=== PATIENT | female | born 1985 | race Caucasian/White ===

== ENCOUNTER 2021-01-03 01:31 | Inpatient (IN) | payer BC, SELFPAY ==
[2021-01-03] VITALS (116 sets, daily range): BP systolic 94–132; BP diastolic 54–96; PULSE 64–118; RESP 16–18; TEMP 36.3–36.9; O2SAT 89–100; BMI 29.5
--- OUTSIDE RECORDS SUMMARY | 2021-01-03 01:38 | XMS_ITS ---
:1985 Author Care Team Providers Name Role Phone Vlad Ordonez Primary Care Provider Unavailable Allergies Code Code System Name Reaction Severity Status Onset NKDA ? Medications Name Status Start Date Stop Date ? ? Adderall XR 30 mg capsule,extended release Completed ? 02/28/2018 Take 1 capsule every day by oral route. Amphetamine Salt Combo 20 mg tablet Unknown ? Not available Boostrix Tdap 2.5 Lf unit-8 mcg-5 Unknown ? Not available Lf/0.5 mL intramuscular syringe ceftriaxone 1 gram solution for injection Completed ? 10/08/2018 inject 1 mg ciprofloxacin 250 mg tablet Unknown ? Not available take 1 tablet by mouth twice a day cyanocobalamin (vit B-12) 1,000 mcg/mL injection solution Active ? Not available Inject 1 mL every month by subcutaneous route. dextroamphetamine-amphetamine 20 mg Completed ? 08/29/2016 tablet dextroamphetamine-amphetamine 30 mg tablet Active ? Not available TAKE 1 TABLET BY MOUTH EVERY DAY ergocalciferol (vitamin D2) 1,250 mcg Unknown ? Not available (50,000 unit) capsule fluconazole 150 mg tablet Completed ? 2019 TK 1 T PO TODAY THEN TK 1 T ON SUNDAY Fluvirin [id number] (PF) 45 mcg (15 mcg Unknown ? Not available x 3)/0.5 mL IM syringe hyoscyamine 0.125 mg disintegrating tablet Unknown ? Not available take 1 tablet by mouth every 6 hours if needed BEFORE MEALS AND A... (REFER TO PRESCRIPTION NOTES). Lamictal XR 100 mg ta
--- OUTSIDE RECORDS SUMMARY | 2021-01-03 01:38 | XMS_ITS ---
:1985 Author Care Team Providers Name Role Phone Vlad Pepe Primary Care Provider Unavailable Allergies Code Code System Name Reaction Severity Status Onset NKDA ? Medications Name Status Start Date Stop Date ? ? Adderall XR 30 mg capsule,extended release Completed 02/2802/28/2018 Take 1 capsule every day by oral route. Amphetamine Salt Combo 20 mg Completed ? 08/2016 tablet Boostrix Tdap 2.5 Lf unit-8 Unknown ? Not available mcg-5 Lf/0.5 mL intramuscular syringe ceftriaxone 1 gram solution for injection Completed ? 10/08/2018 inject 1 mg ciprofloxacin 250 mg tablet Unknown ? Not available take 1 tablet by mouth twice a day COVID-19 test specimen collection Completed ? 12/22/2020 DIRECTED cyanocobalamin (vit B-12) 1,000 mcg/mL injection solution Active ? Not available Inject 1 mL every month by subcutaneous route. dextroamphetamine-amphetamine Completed ? 20 mg tablet dextroamphetamine-amphetamine 30 mg tablet Active ? Not available TAKE 1 TABLET BY MOUTH EVERY DAY ergocalciferol (vitamin D2) Unknown ? Not available 1,250 mcg (50,000 unit) capsule fluconazole 150 mg tablet Completed ? 2019 TK 1 T PO TODAY THEN TK 1 T ON SUNDAY Fluvirin 8710-5057 (PF) 45 mcg Unknown ? N ot available (15 mcg x 3)/0.5 mL IM syringe
--- OUTSIDE RECORDS SUMMARY | 2021-01-03 01:38 | XMS_ITS | Encounter Summary ---
:1985 Author Reason for Visit F/U Meds Assessment and Plan 1. Renewal of prescription ? lamotrigine 100 mg tablet ? dextroamphetamine-amphetam ine 30 mg tablet 2. Attention deficit hyperactivi ty disorder, predominantly inattentive type 3. Gestation period, 38 weeks Discussion Note: None recorded.Patient educational handouts: No information available. Plan of Care Reminders Provider Appointments None ? ? recorded. Lab None ? ? recorded. Referral None ? ? recorded. Procedures None ? ? recorded. Surgeries None ? ? recorded. Imaging None ? ? recorded. Medications Name Start Date ? ? cyanocobalamin (vit B-12) 1,000 mcg/mL injection solut ion ? Inject 1 mL every month by subcutaneous route. dextroamphetamine-amphetamine 30 mg tablet ? TAKE 1 TABLET BY MOUTH EVERY DAY lamotrigine 100 mg tablet ? TAKE 1 TABLET BY MOUTH THREE TIMES DAILY lorazepam 1 mg tablet ? TK 1 T PO TID Medications Administered None recorded. Vitals Height Weight BMI Blood Pressure 5 ft 7 in 194 lbs 16 oz 30.5 kg/m2 120/70 mm[Hg] Results Lab Results None recorded. Allergies Code Code System Name [place]
[2021-01-03 02:17] LABS: Basophils Percent Auto 0.4 % (0.2-1.2); Hemoglobin 11.8 g/dL (12.0-15.0); Immature Granulocyte Absolute 0.05 K/mm3 (0.00-0.031); Immature Granulocyte Percent A 0.5 % (0-0.5); Lymphocytes Absolute Auto 1.82 K/mm3 (0.9-3.2); Lymphocytes Percent Auto 19.5 % (18.3-44.2); Mean Corpuscular HGB Conc 32.8 g/dl (32-36); Mean Corpuscular Hemoglobin 28.9 pg (26-34); Mean Platelet Volume 11.3 fl (7.4-10.4); Monocytes Absolute Auto 0.5 K/mm3 (0.1-0.6); Monocytes Percent Auto 5.4 % (2.6-8.5); Neutrophils Absolute Auto 6.9 K/mm3 (1.3-6.7); Neutrophils Percent Auto 74.2 % (45.5-73.1); Platelet Count Result 169 k/mm3 (150-375); Red Blood Count 4.09 M/mm3 (4.2-5.4); Red Cell Distribution Width 14.5 % (11.5-14.5); White Blood Count 9.3 K/mm3 (4.5-10.0)
--- NOTE | 2021-01-03 02:26 | LDADM ---
This patient, Odessa Rossi, was admitted to Labor/Delivery/Recovery 104 on 01/03/21 at 01:31. Plans for labor, pain management and were discussed with patient. Patient/family oriented to hospital policies and general routines including ID bracelet, bed and alarms, visiting hours, pain management, procedures, bathroom and other care routines, personal items, smoking policy, room service/diet and guest tray routines, infant security routines, and visiting hours. Patient/Family are encouraged to report perceived risks to care and to ask questions if they do not understand what they are told or what they should do. See OBIX for further documentation.
[2021-01-03] MEDS: LACTATED RINGERS 1,000 ML 125 ML IV CONT ×2 (02:30→03:18)
[2021-01-03] MEDS: AMPICILLIN 2 GM/NS 100 ML 2 GM/100 ML BAG IVPB (02:31)
[2021-01-03 03:14] LABS: HIV 1/2 Ab P24 Ag Result Negative (Negative)
--- NOTE | 2021-01-03 03:32 | WPDANESEPPF ---
Anes - Initial Pre Proc Eval Procedure: labor epidural Date/Time: 01/03/21 03:32 Surgeon: Cruzito Mchugh MD Pre Op Diagnosis: labor pain Pre Op Diagnosis: IOL Patient Data Age: 35 Gender: F Height: 1.73 m Weight: 88 kg Allergies Allergy/AdvReac Type Severity Reaction Status Date / Time No Known Allergies Allergy Verified 12/21/20 15:37 Home Medications Medication Instructions Recorded Confirmed Type lamotrigine [Lamictal] 300 mg PO DAILY 12/21/20 12/21/20 History prenat.vits,franc,[id number] 1 tablet PO DAILY 12/21/20 12/21/20 History [ #2] Laboratory Tests 01/03/21 01/03/21 01/03/21 02:02 02:02 02:02 WBC 9.3 K/mm3 K/mm3 (4.5-10.0) RBC 4.09 M/mm3 L M/mm3 (4.2-5.4) Hgb 11.8 g/dL L g/dL (12.0-15.0) Hct 36.0 % L % (37.0-47.0) MCV 88.0 fl fl (80-100) MCH 28.9 pg pg (26-34) MCHC 32.8 g/dl g/dl (32-36) RDW 14.5 % % (11.5-14.5) Plt Count 169 k/mm3 k/mm3 (150-375) MPV 11.3 fl H fl (7.4-10.4) Immature Gran % (Auto) 0.5 % % (0-0.5) Neut % (Auto) 74.2 % H % (45.5-73.1) Lymph % (Auto) 19.5 % % (18.3-44.2) [place] % (Auto) 5.4 % % (2.6-8.5) Eos % (Auto) 0.0 % % (0-4.4) Baso % (Auto) 0.4 % % (0.2-1.2) Lymph # (Auto) 1.82 K/mm3 K/mm3 (0.9-3.2) [place] # (Auto) 0.5 K/mm3 K/mm3 (0.1-0.6) Eos # (Auto) 0.0 K/mm3 K/mm3 (0-0.3) Baso # (Auto) 0.0 K/mm3 K/mm3 (0.0-0.1) Abs Immat Gran (auto) 0.05 K/mm3 H K/mm3 (0.00-0.031) Absolute Neuts (auto) 6.9 K/mm3 H K/mm3 (1.3-6.7) Absolute Nucleated RBC 0.0 K/mm3 K/mm3 (0.0-0.012) Nucleated RBC % 0.0 % % (0.0-0.2) RPR Pending HIV 1&2 Ab/P24 Ag 4thGn Negative (Negative) Blood Type Antibody Screen 01/03/21 02:02 WBC RBC Hgb Hct MCV MCH MCHC RDW Plt Count MPV Immature Gran % (Auto) Neut % (Auto) Lymph % (Auto) [place] % (Auto) Eos % (Auto) Baso % (Auto) Lymph # (Auto) [place] # (Auto) Eos # (Auto) Baso # (Auto) Abs Immat Gran (auto) Absolute Neuts (auto) Absolute Nucleated RBC Nucleated RBC % RPR HIV 1&2 Ab/P24 Ag 4thGn Blood Type O Positive Antibody Screen Negative Patient hx anesthesia problems: none Family hx anesthesia problems: none Results Review: All pre-operative results and documents have been reviewed as part of the pre-operative evaluation. COUNTS INCLUDE 234 BEDS AT THE [facility] Past Medical History Medical History (Updated 01/03/21 @ 03:33 by Ky Reyes DO) Epilepsy Family History Family History Mother Epilepsy Social History Social History Smoking status: Never smoker Second hand tobacco smoke exposure: No Substance use: never Spiritual care concerns: No Anes - Eval Final PreProcedure Day of Procedure 01/03/21 03:32 Patient weight: overweight ASA classification: III Anesthesia type and monitoring: regional epidural and standard monitoring Results Review: All pre-operative results and documents have been reviewed as part of the pre-operative evaluation. Informed Consent: The patient's anesthetic plan and its attendant risks and benefits were discussed with the patient/family/POA. Questions were solicited and answers provided to the satisfaction of the patient/family/POA.
--- NOTE | 2021-01-03 06:07 | PM.IMHP ---
H&P: HPI History of Present Illness Date/Time: 01/03/21 06:07 35-year-old 5 para 2021 whose last menstrual period 04/04/2020, EDC is 01/08/2021, presents at39+ weeks gestation in active labor. She is positive for group B strep and is being treated as such. Epidural is in and working. The has otherwise been uncomplicated. She has advanced maternal age and genetic testing proved normal male chromosomes Chief Complaint: labor at term with group B strep Review of Systems Review of Systems: All systems reviewed & are unremarkable except as noted in HPI and below PMFSH Past Medical History Medical History Epilepsy Family History Family History Mother Epilepsy Social History Social History Smoking status: Never smoker Second hand tobacco smoke exposure: No Substance use: never Spiritual care concerns: No Meds Home Medications and Allergies Home Medications Medication Instructions Recorded Confirmed Type lamotrigine [Lamictal] 300 mg PO DAILY 12/21/20 12/21/20 History prenat.vits,franc,qyc-[id number]-[id number] 1 tablet PO DAILY 12/21/20 12/21/20 History [ #2] Allergies Allergy/AdvReac Type Severity Reaction Status Date / Time No Known Allergies Allergy Verified 12/21/20 15:37 Exam Const: General: no acute distress Eyes: General: appearance normal, both eyes and all related structures Neck: Neck: supple and no JVD Thyroid: thyroid normal Resp: Effort & Inspection: normal respiratory effort Auscultation: clear to auscultation bilaterally Cardio: Rate: regular rate Rhythm: regular rhythm GI: Inspection: non-distended GI Palp: Yes Soft to palpation, No Tenderness to palpation present (GI) and No Guarding due to palpation present (GI) Auscultation: normal bowel sounds : External Female Exam: normal external appearance Speculum Exam - Vagina: normal appearance of the vagina Speculum Exam - Cervix: Cervical os closed ( cervix 8/100%/ 0. AROM clear. Her FHTs reassuring) Skin: General skin exam: no rashes or lesions noted Extrem: General: normal to inspection and no edema Psych: Mental Status: mental status grossly normal Affect: normal affect H&P: Results Labs Labs: Short CBC 01/03/21 Range/Units 02:02 WBC 9.3 (4.5-10.0) K/mm3 Hgb 11.8 L (12.0-15.0) g/dL Hct 36.0 L (37.0-47.0) % Plt Count 169 (150-375) k/mm3 Assessment and Plan Additional Plan impression: Term in active labor with group B strep Plan: Group B strep prophylaxis is undertaken. The spontaneous vaginal delivery is expected. Epidural is in and working
[2021-01-03] MEDS: AMPICILLIN 1 GM/NS 50 ML 1 GM/50 ML BAG IVPB (06:32)
[2021-01-03 06:58] LABS: Rapid Plasma Reagin Non-Reactive (NonReactive)
[2021-01-03] MEDS: OXYTOCIN 30 UNITS/NS 500 ML 30 UNITS/500 ML BAG 999 UNITS IV CONT (08:17)
--- NOTE | 2021-01-03 08:24 | PM.OBPRVD ---
OB - Delivery Note Procedure Delivery date: 01/03/21 Intrapartal events: None Induction method: none Delivery monitor: external FHT Route of delivery: Episiotomy description: None Laceration Description: None Specimen: No Quantitative Blood Loss (ml): 158 Anesthesia type: Epidural Disposition: floor Narrative: amp x 2 for gbs Baby Date of : 01/03/21 Time of : 08:15 Weeks of gestation at delivery: 39 Infant gender: Male Weight (pounds): 8 Weight (ounces): 6 presentation: vertex position: Right Occiput Anterior Placenta delivery description: Spontaneous cord vessel description: 3 Vessels, Nuchal Cord, Tight and Clamped/Cut score one minute: 9 score five minutes: 9
[2021-01-03] MEDS: OXYTOCIN 30 UNITS/NS 500 ML 30 UNITS/500 ML BAG 125 UNITS IV CONT (08:58)
[2021-01-03] MEDS: BENZOCAINE 20% AER SPR (*SP) 56 GM CAN 1 SPRAY TOPICAL (10:50)
[2021-01-03] MEDS: WITCH HAZEL 40 PADS 1 PAD TOPICAL (10:50)
--- NOTE | 2021-01-03 15:20 | PC.NURSE ---
Mother called out for assist with feeding. This is mother's 3rd child first to breastfeed. is able to freely thrust tongue past gum ridge and flange both lips. Skin is intact on both nipples, no redness and bruising noted. Reviewed feeding cues, frequencies, duration of feedings, feeding elimination flow sheet, and signs of adequate intake. Demonstrated stimulation techniques to wake infant for feeding. Mother is attempting to right breast in cradle, suggested to darlene cross cradle. Assisted with infant to breast. Reviewed positioning/alignment in cross cradle, holding breast in ?U? hold and guided asymmetrical latch on. Reviewed rational for each. Right nipple has a small profile compared to left. Demonstrated rolling nipple and assisted with the Latch assist to draw out nipple. Infant able to latch correctly within a several attempts. Infant nursed eagerly with steady draws and occasional swallowing noted, some pausing noted. Reviewed signs of a correct latch, effective nursing and suck swallow ratio. Suggested mother stimulate while feeding to increase stimulate, increase intake and to assist with maintaining deep latch. would slip to shallow latch causing tenderness. Demonstrated how to adjust latch more deeply while feeding if needed. Mother reports she can feel the difference in latch with no/less tenderness. Nipple care reviewed of lanolin after feedings, warm compresses as needed. Instructed mother to call out for RN assistance if she is unable to latch for feeding or she has discomfort with nursing. Instructed feeding should be initiated three hours from start of last feeding or if feeding cues are noted before. Mother voiced understanding of information shared.
[2021-01-03] MEDS: IBUPROFEN 600 MG TABLET PO ×2 (16:22→22:23)
--- NOTE | 2021-01-03 19:08 | PC.NURSE ---
1110 Pt admitted to room 282 per wheelchair from labor and delivery after spontaneous vaginal delivery of viable male infant at [address] Patricia Sifuentes. Mother is a and is choosing to breast feed infant. /FOB present. Pt's VSS and assessment WNL. Couple oriented to room, staffing and procedures. Pt R leg heavy with continued epidural effect; Vibha Steady used for transfer from wheelchair to bed; pt knows to call for assistance to bathroom; she agreed.
[2021-01-03] MEDS: ACETAMINOPHEN 325 MG TABLET 650 MG PO (19:46)
[2021-01-04 05:00] VITALS: BP 100/57; PULSE 65; RESP 18; TEMP 36.6
[2021-01-04] MEDS: IBUPROFEN 600 MG TABLET PO ×2 (05:19→10:22)
[2021-01-04 05:58] LABS: Hematocrit 31.4 % (37.0-47.0)
--- NOTE | 2021-01-04 06:17 | PM.OBPNVD ---
OB - PN: Subj Subjective Date/time seen: 01/04/21 06:17 Patient comments: no complaints and pain well controlled baby status: doing well and nursing well OB - PN: Obj Data Labs CBC & Chem 7: 01/04/21 05:18 Labs: Laboratory Results - last 24 hr 01/03/21 01/04/21 02:02 05:18 Hgb 10.0 L Hct 31.4 L RPR Non-reactive OB - PN A/P Plan day: 1 Plan: routine care Time Spent With Patient Time: Total time spent is greater than 50% in coordination of care (as documented) at patient's floor/unit and/or counseling patient: Time with patient: less than 15 minutes Review of Systems Review of Systems: All systems reviewed & are unremarkable except as noted in HPI and below Exam Const: General: no acute distress Eyes: General: appearance normal, both eyes and all related structures Neck: Neck: supple and no JVD Thyroid: thyroid normal Resp: Effort & Inspection: normal respiratory effort Auscultation: clear to auscultation bilaterally Cardio: Rate: regular rate Rhythm: regular rhythm GI: Inspection: non-distended GI Palp: Yes Soft to palpation, No Tenderness to palpation present (GI) and No Guarding due to palpation present (GI) Auscultation: normal bowel sounds : General: Yes bladder normal to palpation External Female Exam: normal external appearance Speculum Exam - Vagina: normal vaginal discharge and No vaginal bleeding Speculum Exam - Cervix: nontender Bimanual exam- vagina & uterus: bladder normal to palpation and No Cervical tenderness present OB/external & speculum: No vaginal bleeding Skin: General skin exam: no rashes or lesions noted Extrem: General: normal to inspection and no edema Psych: Mental Status: mental status grossly normal Affect: normal affect
[2021-01-04 08:00] VITALS: BP 98/60; PULSE 65; PULSE 68; RESP 18; TEMP 36.8
--- NOTE | 2021-01-04 08:30 | PC.NURSE ---
Patient was given the opportunity to view the discharge video Mother & Baby Care, The First Two Weeks and to ask questions. Patient declined viewing the video and has been given the mother/baby guide for home reference.
--- NOTE | 2021-01-04 09:55 | PC.NURSE ---
Mother called out for assist with feeding due to pain on right with latching, no issues with left. Mother states she has been given a nipple shield to assist with latching to right breast. Suggested mother sit up in side chair this feeding to assist with her comfort and latch. Infant is able to freely thrust tongue past gum ridge and flange both lips. Skin on right nipple is reddened and small area of scabbing noted. Reviewed feeding cues, frequencies, duration of feedings, feeding elimination flow sheet, and signs of adequate intake. Demonstrated stimulation techniques to wake infant for feeding. Assisted with infant to breast. Reviewed positioning/alignment in football, holding breast in ?C? hold and guided asymmetrical latch on. Reviewed rational for each. Infant able to latch correctly within a few attempts. Infant nursed eagerly with steady draws and occasional swallowing noted, some pausing noted. Reviewed signs of a correct latch, effective nursing and suck swallow ratio. Suggested mother stimulate while feeding to increase stimulate, increase intake and to assist with maintaining deep latch. would slip to shallow latch causing tenderness. Demonstrated how to adjust latch more deeply while feeding if needed. Mother reports she can feel the difference in latch with no/less tenderness. Nipple care reviewed of lanolin after feedings, warm compresses as needed. Instructed mother to call out for RN assistance if she is unable to latch infant for feeding or she has discomfort with nursing. Instructed feeding should be initiated three hours from start of last feeding or if feeding cues are noted before. Mother voiced understanding of information shared.
[2021-01-04] MEDS: BENZOCAINE 20% AER SPR (*SP) 56 GM CAN 1 SPRAY TOPICAL (10:22)
[2021-01-04] MEDS: WITCH HAZEL 40 PADS 1 PAD TOPICAL (10:22)
[2021-01-04] MEDS: DOCUSATE SODIUM 100 MG CAPSULE PO (10:23)
[2021-01-04] MEDS: MULTIVIT/MIN/PREN/FOL AC/IRON TABLET 1 TAB PO (10:23)
--- NOTE | 2021-01-04 11:29 | PC.NURSE ---
Self care and infant care discharge instructions given including follow up visit date and time. Pt. verbalized understanding. No questions or concerns voiced. Very pleasant and cooperative. FOB at side.
--- NOTE | 2021-01-04 14:00 | PC.NURSE ---
Consult with pt., observed mother is able to independently latch infant with appropriate positioning/alignment. Infant eagerly latches with long rhythmical draws and frequent swallowing noted. Mother continues to work with latch on right breast She reports slight nipple discomfort on right none on left, is feeding as required and waking to feed if needed. has had at least 8 effective feedings in the past 24 hours, and is currently meeting outcomes for weight, output, jaundice and feeding frequencies. Mother states she feels confident to continue effective at home. Reviewed transition to breast milk, signs of adequate intake, and engorgement/relief. Instructed to call ICP if intake/output less than required. Reviewed regular medications mother is taking. Information provided per Alma Rosa. Reviewed community resources on the [email or web address] website and in the Mom/Baby guide. Information on outpatient services provided. Mother has no further questions at this time. Instructed feeding should be initiated three hours from start of last feeding or if feeding cues are noted before until seen by ICP. Mother voiced understanding of information shared.
--- NOTE | 2021-01-04 15:13 | WPDANLDPN2 ---
Anes-Prog Note L&D Date/Time: 01/04/21 15:13 Comfortable throughout: labor and delivery Neuraxial method: epidural Epidural/Spinal procedure site: clean & non-tender Neuro status: Neuro function grossly intact. Cardiovascular status: normal Respiratory status: normal Airway patency: baseline Mental status: baseline Post-Op hydration status: normal Vital Signs: Last Vital Signs Temp 98.3 F 01/04/21 08:00 Pulse 68 01/04/21 08:00 Resp 18 01/04/21 08:00 BP 98/60 L 01/04/21 08:00 Pulse Ox 100 01/03/21 17:15 Pain score (VAS): 0 Post-procedural complaints: none Patient feedback: Patient satisfied with anesthetic care.
[2021-01-05 11:41] VITALS: BP 120/70; PULSE 69; RESP 20; TEMP 37; O2SAT 100
--- NOTE | 2021-01-07 10:07 | PM.DS ---
DS: Admitting Diagnosis Discharge Date 01/04/21 Admitting Diagnosis term favorable cervix DS: Summary Hospital Course Hospital Course: patient was admitted for induction of labor. She underwent spontaneous vaginal delivery and had an unremarkable course. Time Spent with Patient Time attestation: Total time spent providing and/or coordinating discharge services: Exam Const: General: no acute distress Eyes: General: appearance normal, both eyes and all related structures Neck: Neck: supple and no JVD Thyroid: thyroid normal Resp: Effort & Inspection: normal respiratory effort Auscultation: clear to auscultation bilaterally Cardio: Rate: regular rate Rhythm: regular rhythm GI: Inspection: non-distended GI Palp: Yes Soft to palpation, No Tenderness to palpation present (GI) and No Guarding due to palpation present (GI) Auscultation: normal bowel sounds : General: Yes bladder normal to palpation External Female Exam: normal external appearance Speculum Exam - Vagina: normal vaginal discharge and No vaginal bleeding Speculum Exam - Cervix: nontender Bimanual exam- vagina & uterus: bladder normal to palpation and No Cervical tenderness present OB/external & speculum: No vaginal bleeding Skin: General skin exam: no rashes or lesions noted Extrem: General: normal to inspection and no edema Psych: Mental Status: mental status grossly normal Affect: normal affect Discharge Plan Discharge Attending physician on discharge: Cruzito Mchugh Consulting providers: Ky Reyes Discharging Clinician: Cruzito Mchugh Anticipated Discharge Date/Time: 01/04/21 11:30 Patient Disposition: Home, Self-Care Activity: may shower and pelvic rest Diet: breast feed on demand Discharge Instructions: Education: Mom and Baby Guide Given to: Mother Follow-Up: Call your delivering provider's office for an appointment to be seen in: 6 Weeks Mom and baby should come to the [facility] for the follow-up appointment. Appointment Date/Time: Tuesday, January 05, 2021 at 11:00 am What to expect at your follow-up visit: Blood Pressure Check Physical Assessment Call [phone] if you are unable to keep your appointment time. BREAST CARE: * Wear a snug supportive bra. * For engorgement discomfort: Breast Feeding: * Apply warm moist washcloths * Express milk as needed to relieve engorgement * Wear loose clothing Bottle Feeding: * May apply ice packs * For sore nipples: * Identify correct latch-on * Apply warm moist washcloths before and after nursing * Air dry nipples after nursing * May apply Lansinoh cream to nipples EPISIOTOMY/PERINEAL CARE: * Until bleeding stops, use your june bottle after urinating * Change your pad frequently throughout the day ACTIVITY: * Rest as much as possible. * Do not exercise or lift anything heavier than your baby (such as laundry or other children.) * Avoid stairs or driving as much as possible. * Do not put anything into the vagina. No douching, tampons, or sexual activity until seen by physician. NOTIFY PHYSICIAN IF YOU HAVE ANY QUESTIONS OR IF ANY OF THE FOLLOWING SYMPTOMS OCCUR: * If your vaginal bleeding becomes foul smelling. * If your vaginal bleeding becomes more heavy than a period or if your bleeding changes from pink to bright red. However, you may pass an occasional walnut-sized clot once or twice for the first week . * If you experience a sharp, shooting pain in you calves. * If you discover a hard, reddened area on your breast or if you experience flu-like symptoms. DIET: * Eat regular, well-balanced meals. * Drink plenty of fluids daily. If , drink to thirst. Patient Instructions: Antibiotic Form Stand Alone Forms: General Discharge Information Follow-up/Referrals
== END 2021-01-04 15:26 | disposition home or self-care (01) | DRG 807 ==
LOC: ANHLDR 01:36 → ANHOB2 11:12
PROVIDERS: Admitting Provider Obstetrics & Gynecology; PCP Family Medicine; Visit Provider Obstetrics & Gynecology
DX: O99.824 Streptococcus B carrier state complicating childbirth (principal); Z37.0 Single live birth; O69.1XX0 Labor and delivery complicated by cord around neck, with compression, not applicable or unspecified; Z3A.39 39 weeks gestation of pregnancy
CPT/HCPCS: 36415; 85014; 85018; 85025; 86592; 86703; 86850; 86900; 86901; A9270; G0432; J0290; J2590; J2795; J7120

== ENCOUNTER 2023-06-08 17:09 | Emergency (ER) | payer BC, SELFPAY ==
--- NOTE | ~2023-06-08 | CT_ITS ---
EXAMINATION: CT BRAIN W/O DATE: 06/08/2023 17:55 INDICATION: Paresthesias. TECHNIQUE: Computed tomography (CT) of the head was performed without intravenous contrast. The dose- length product was 605.33 mGy-cm. Automated exposure control and iterative reconstruction technique w ere employed. COMPARISON: No prior studies for comparison. FINDINGS: Normal brain parenchymal volume for age. Normal monsivais-white differentiation. No acute intrac ranial hemorrhage, infarction, mass or mass effect. No ventriculomegaly or midline shift. Midline sagittal images demonstrate a normal corpus callosum, c raniovertebral junction and sella turcica. Basilar cisterns are patent. Paranasal sinuses and mastoids are pneumatized. No depressed skull fractures. IMPRESSION: 1. No acute intracranial abnormality. Reviewed, dictated and finalized at location A.
--- NOTE | ~2023-06-08 | US_ITS ---
EXAMINATION:US venous doppler LE RT INDICATION:Right leg pain. Ecchymosis. TECHNIQUE: Multiple grayscale, color flow and Doppler images of the right lower extremity deep venous systems were obtained and reviewed. COMPARISON:No prior studies for comparison. FINDINGS: The common femoral, superficial femoral and popliteal veins demonstrate normal respiratory variation, augmentation and compressibility. Color flow is also seen within the posterior tibial, pe roneal, greater saphenous and profunda veins. IMPRESSION: 1: No lower extremity deep venous thrombosis. Reviewed, dictated and finalized at location A.
--- NOTE | ~2023-06-08 | XR_ITS ---
EXAMINATION: XR chest 2V 06/08/2023 17:56 INDICATION: Chest pain. PROCEDURE: 2 view chest COMPARISON: No prior studies for comparison. FINDINGS: The lungs are clear. The cardiomediastinal silhouette is within normal limits. There are no pleural effusions. There is no pneumothorax suspected. IMPRESSION: 1: NO ACUTE CARDIOPULMONARY DISEASE. Reviewed, dictated and finalized at location A.
[2023-06-08 17:14] VITALS: BP 114/68; PULSE 92; RESP 18; TEMP 36.3; O2SAT 100
--- NOTE | 2023-06-08 17:25 | ED.EXTPRO ---
HPI - Extremity Problem General Chief complaint: Extremity Problem,Nontraumatic Stated complaint: right sided arm/leg numbness since 1430 Time Seen by Provider: 06/08/23 17:25 Source: patient Mode of arrival: ambulatory Limitations: no limitations History of Present Illness HPI Narrative: Patient is a 38 y/o female, with PMH of epilepsy, who presents to the ED with multiple complaints. Patient reports she 1st developed a brief episode of midsternal chest pain around 2:00 p.m. today. States she walked around her house and the pain quickly resolved. She then began having a tingling sensation in her RUE. She then states the tingling began to radiate into her right thigh and leg. She then noticed a bruise behind her R knee. Denies any known injury. She then decided to come here. Patient states she would just like to be checked out and make sure she is not having a heart attack or have a blood clot. Denies current CP. Denies significant swelling in lower extremities. Denies pain in lower extremities. Denies any previous history of blood clots. Denies recent surgery or long distance travel. She is not on any hormonal supplements. Denies previous cardiac issues. Denies history of hypertension, hyperlipidemia, diabetes. States tingling is still present very slightly. Denies weakness of RUE/RLE. Denies numbness. Denies any slurred speech, confusion, significant dizziness/lightheadedness, vision changes. Denies SOB, cough or cold sx's. Related Data Home Medications Medication Instructions Recorded Confirmed lamotrigine 100 mg tablet 300 mg PO DAILY 12/21/20 12/21/20 (Lamictal) prenat.vits,franc,ocl-sqmx-zquvp 1 tablet PO DAILY 12/21/20 12/21/20 Allergies Allergy/AdvReac Type Severity Reaction Status Date / Time No Known Allergies Allergy Verified 12/21/20 15:37 Review of Systems Review of Systems: CONSTITUTIONAL: Denies fever, chills, or sweats. CARDIOVASCULAR: See HPI RESPIRATORY: Denies cough or dyspnea. GASTROINTESTINAL: Denies abdominal pain, nausea, vomiting. MUSCULOSKELETAL: See HPI NEUROLOGIC: See HPI. All systems reviewed & are unremarkable except as noted in HPI and below PMFSH Past Medical History Medical History Epilepsy Family History Family History Mother Epilepsy Social History Social History Smoking status: Never smoker Second hand tobacco smoke exposure: No Substance use: never Spiritual care concerns: No Exam Narrative: GENERAL: Well appearing, well-nourished, non-toxic, in no acute distress. HEAD: Normocephalic, atraumatic. EYES: PERRL/EOMI, conjunctivae clear bilaterally. No nystagmus. NECK: Supple. No meningeal signs. RESPIRATORY: Airway patent, respirations nonlabored. Clear to auscultation bilaterally, no rales, rhonchi, wheezing. CARDIOVASCULAR: Regular rate and rhythm without murmurs, rubs, or gallops. Peripheral pulses easily palpable bilaterally. MUSCULOSKELETAL: Moves all extremities. No gross deformities. Ecchymosis to R popliteal region. No significant tenderness over ecchymosis. No calf tenderness. No lower extremity edema. SKIN: Warm, dry, normal color. No rashes. NEURO: A&O X3. Speech clear. No aphasia or slurred speech. Follows commands. CN II-XII intact. Sensation intact throughout RUE/RLE, no sensory deficits. Steady gait. No ataxic movements. Strength 5/5 in upper and lower extremities bilaterally. Zjbt-vy-lhqa and pkchqw-pr-zwiw testing intact bilaterally. No pronator drift. Equal faculty support coordinator strength bilaterally. PSYCHIATRIC: Mildly anxious. Normal interaction. Course Vital Signs Vital signs: Vital Signs Temperature 97.4 F L 06/08/23 17:14 Pulse Rate 92 06/08/23 17:14 Respiratory Rate 18 06/08/23 17:14 Blood Pressure 114/68 06/08/23 17:14 Pulse Oximetry 100 06/08/23 17:
--- NOTE | 2023-06-08 17:36 | ECG_ITS ---
Measurements Intervals [place] Rate: 76 P: -31 KS: 154 QRS: 23 QRSD: 102 T: 16 QT: 394 QTc: 445 Interpretive Statements SINUS RHYTHM INCOMPLETE RIGHT BUNDLE BRANCH BLOCK BORDERLINE ECG NO PREVIOUS ECG AVAILABLE FOR COMPARISON Electronically Signed On 06-08-2023 20:29:10 CDT by Adi Benson D.O.
--- NOTE | 2023-06-08 17:46 | PC.NURSE ---
Pt taken for CT at this time
--- NOTE | 2023-06-08 18:21 | PC.NURSE ---
Pt returned to room 11 at this time
[2023-06-08 18:40] LABS: Basophils Absolute Auto 0.1 K/mm3 (0.0-0.1); Eosinophils Percent Auto 0.2 % (0-4.4); Hematocrit 38.2 % (37.0-47.0); Hemoglobin 12.3 g/dL (12.0-15.0); Immature Granulocyte Absolute 0.02 K/mm3 (0.00-0.031); Immature Granulocyte Percent A 0.3 % (0-0.5); Lymphocytes Absolute Auto 1.27 K/mm3 (0.9-3.2); Lymphocytes Percent Auto 20.6 % (18.3-44.2); Mean Corpuscular HGB Conc 32.2 g/dl (32-36); Mean Corpuscular Hemoglobin 28.1 pg (26-34); Mean Corpuscular Volume 87.2 fl (80-100); Mean Platelet Volume 10.2 fl (7.4-10.4); Monocytes Absolute Auto 0.3 K/mm3 (0.1-0.6); Neutrophils Absolute Auto 4.5 K/mm3 (1.3-6.7); Neutrophils Percent Auto 72.9 % (45.5-73.1); Platelet Count Result 264 k/mm3 (150-375); Red Blood Count 4.38 M/mm3 (4.2-5.4); Red Cell Distribution Width 12.2 % (11.5-14.5); White Blood Count 6.2 K/mm3 (4.5-10.0)
[2023-06-08 18:53] LABS: Alanine Aminotransferase 10 U/L (6-35); Albumin Level 4.4 g/dL (3.5-5.1); Alkaline Phosphatase 68 U/L (38-126); Anion Gap 5 mmol/L (8-16); Aspartate Amino Transferase 20 U/L (14-36); Bilirubin,Total 1.5 mg/dL (0.2-1.3); Blood Urea Nitrogen 9 mg/dL (7-17); Calcium 9.5 mg/dL (8.4-10.2); Carbon Dioxide 27 mmol/L (22-30); Chloride 104 mmol/L (98-107); Estimated CRCL calculation 91 ml/min; Estimated Glomerular Filt Rate > 60; Glucose 110 mg/dL (65-110); Magnesium 2.2 mg/dL (1.6-2.3); Potassium 3.6 mmol/L (3.4-5.0); Sodium 136 mmol/L (137-145)
[2023-06-08 18:54] LABS: Prothrombin Time 13.2 Seconds (11.1-14.7)
[2023-06-08 18:55] LABS: Partial Thromboplastin Time 29.2 Seconds (22.3-36.8)
[2023-06-08 19:04] LABS: Troponin I < 0.012 ng/mL (0.000-0.034)
[2023-06-08 19:42] VITALS: BP 117/75; PULSE 85; RESP 18; O2SAT 100
[2023-06-08 20:43] VITALS: BP 120/88; PULSE 87; RESP 18; O2SAT 100
[2023-06-08 21:01] LABS: Troponin I < 0.012 ng/mL (0.000-0.034)
[2023-06-08 21:41] VITALS: BP 110/95; PULSE 83; RESP 14; O2SAT 100
== END 2023-06-08 21:46 | disposition home or self-care (01) ==
PROVIDERS: Emergency Provider Physician Assistant; PCP Family Medicine
DX: R20.2 Paresthesia of skin (principal); R07.89 Other chest pain; G40.909 Epilepsy, unspecified, not intractable, without status epilepticus; I45.10 Unspecified right bundle-branch block
CPT/HCPCS: 36415; 70450; 71046; 80053; 83735; 84484; 85025; 85610; 85730; 93005; 93971; 99284

== ENCOUNTER 2024-08-17 17:07 | Emergency (ER) | payer BC, SELFPAY ==
--- NOTE | ~2024-08-17 | XR_ITS ---
XR ankle LT min 3V Ordering provider: Bethanie Melara MD History: . INJURY FALL INJ FROM LADDER PAIN . Comparison: None. FINDINGS: BONES: No acute fracture or dislocation. JOINT SPACES: The ankle mortise is normal. SOFT TISSUES: Normal. IMPRESSION: No acute osseous abnormality left ankle. Reviewed, dictated and finalized at location A.
--- OUTSIDE RECORDS SUMMARY | 2024-08-17 17:10 | XMS_ITS | Clinical Summary ---
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 Gender Identity Not on file Sexual Orientation Not on file Plan of Treatment Health Maintenance Due Date Last Done Comments Hepatitis C Virus (HCV) Screening 1985 Hepatitis B Immunization (1 of 3 - 19+ 3-dose series) 2004 Influenza Immunization (#1) 11/25/202304/2019, 05/19/2015, 02/06/2013 SARS-COV-2 Immunization ( - 2023- season) 2023 11/24/2020, 11/03/2020 Respiratory Syncytial Virus (RSV) Immunization (Adult) (1 - 1-dose 75+ series) 2060 DTaP/Tdap/Td Immunization Discontinued 2020, 05/19/2015, 02/06/2013 TdaP Immunization Completed 12/18/2020, 05/19/2015, 02/06/2013 Meningococcal Immunization (ACWY) Aged Out No longer eligible based on patient's age to complete this topic Pneumococcal Immunization Combined Aged Out No longer eligible based on patient's age to complete this topic Rotavirus Immunization Aged Out No lo nger eligible based on patient's age to complete this topic Insurance [facility] Care Teams Electrostatic Painter Relationship Specialty Start Date End Date Provider, None JUAN PCP - General 03/24/21
--- OUTSIDE RECORDS SUMMARY | 2024-08-17 17:10 | XMS_ITS | Clinical Summary ---
Author Organization [address] Address [address] [place] [phone] Care Team Providers Care Bee Breeder Name Role Phone Unknown, Notinfile Primary Care Provider Unavail able Allergies No known active allergies Medications norethindrone-e .estradioL-iron ([place] 04/14, ,) 1 mg-20 mcg (21)/75 mg (7) per tablet Take 1 tablet by mouth daily Active LORazepam (ATIVAN) 1 mg tablet Take 1 tablet (1 mg total) by mouth 3 (three) times a day as needed Active lidocaine viscous (XYLOCAINE) 2 % solutionIndicat ions:Pharyngiti s with viral syndrome Apply 10 mL to the mouth or throat every 6 (six) hours as needed (sore throat) May mix with 30 ml of Mylanta 100 mL 01/05/2024 Active Active Problems Problem Noted Date Diagnosed Date Epilepsy 04/05/2012 Family History Medical History Relation Name Comments Colon cancer Maternal Grandfather Maligna nt Neoplasm, Colon - (Added by TW Conv) Epilepsy Mother Epilepsy - in t he mother. Mother outgrew her Epilepsy and currently is not on any medication. 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 Gender Identity Not on file Sexual Orientation Not on file Obstetrics History Last Filed Vital Signs Vital Sign Reading Time Taken Comments Blood Pressure 118/80 01/05/2024 2:57 PM CDT Pulse 63 01/05/2024 2:57 PM CDT Temperature - - Respiratory Rate 18 01/05/2024 2:57 PM CDT Oxygen Saturation 99% 01/05/2024 2:57 PM CDT Inhaled Oxygen Concentration - - Weight 62.1 kg (136 lb 14.4 oz) 01/05/2024 2:57 PM CDT Height 172.7 cm (5' 8) 01/05/2024 2:57 PM CDT Body Mass Index 20.82 01/05/2024 2:57 PM CDT Plan of Treatment Health Maintenance Due Date Last Done Comments Cervical Cancer Screening 1985 Depression Screening 1985 Hepatitis C Screening 1985 Varicella Vaccines (1 of 2 - 13+ 2-dose series) 1998 Hepatitis B Screening 2003 Regular Well Visit/Exam 18-64 2003 Covid-19 Vaccine ( season) 2023 11/24/2020, 11/03/2020 Influenza Vaccine (Season Ended) 2024 01/11/2022, 02/25/2020, 05/19/2015, Additional history exists DTaP/Tdap/Td Vaccine (4 - Td or Tdap) 12/18/2030 12/18/2020, 05/19/2015, 02/06/2013 HPV Vaccines Aged Out No longer eligi ble based on patient's age to complete this topic Pneumococcal vaccine <65 Aged Out No longer eligible based on patient's age to complete this topic Insurance [employer] [place] [employer] [place] Care Teams Bee Breeder Relationship Specialty Start Date End Date Unknown, Notinfile PCP - General 01/05/24
--- OUTSIDE RECORDS SUMMARY | 2024-08-17 17:10 | XMS_ITS | Referral Summary ---
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
--- OUTSIDE RECORDS SUMMARY | 2024-08-17 17:10 | XMS_ITS | Data Portability ---
Author Organization [facility] [employer], Main Office Address [address] [place] [address] Assessment No assessment recorded. Plan of Treatment Reminders Order Date Submit Date Provider Last Modified By Organization Details Last Modified Time Details Appointments None recorded. Lab lipid panel, serum 2023 [email or web address] 2 [employer] [facility], [address], [place], [address], 4 09:51:18 CMP, serum or plasma 2023 024 [email or web address] 2 [employer] [facility], [address], [place], [address], 4 09:51:18 CK (creatine kinase), total, serum 2023 [email or web address] 2 [employer] [facility], [address], [place], [address], 4 09:51:18 CBC w/ auto diff 2023 024 [email or web address] 2 [employer] [facility], [address], [place], [address], 4 09:51:18 vitamin B12 + folate, serum or blood 2023 024 [email or web address] 2 [employer] [facility], [address], [place], [address], 4 09:51:18 vitamin D, 25-hydroxy, total, serum 2023 024 [email or web address] 2 [employer] [facility], [address], [place], [address], 4 08:31:35 magnesium, serum or plasma 2023 024 [email or web address] 2 [employer] [facility], [address], [place], [address], 4 08:31:35 lipid panel, serum 2023 024 [email or web address] 2 [employer] [facility], [address], [place], [address], 4 08:31:34 CMP, serum or plasma 2023 024 [email or web address] 2 [employer] [facility], [address], [place], [address], 4 08:31:35 HbA1c (hemoglobin A1c), blood 2023 024 [email or web address] 2 [employer] [facility] [facility], [address], [place], [address], 4 08:31:35 TSH, serum or plasma 2023 024 [email or web address] 2 [employer] [facility], [address], [place], [address], 4 08:31:35 CBC w/ auto diff 2023 024 [email or web address] 2 [employer] [facility], [address], [place], [address], 4 08:31:35 folate, serum 2023 024 [email or web address] 2 [employer] [facility], [address], [place], [address], 4 08:31:35 vitamin B12, serum 2023 024 [email or web address] 2 [employer] [facility], [address], [place], [address], 4 08:31:36 rapid strep group A, throat [address], [place], [address], 3 16:16:24 rapid flu (A+B) [email or web address], [place], [address], 3 16:16:24 streptococc us group A, culture, throat 2022 023 [place] [employer] [facility], [address], [place], [address], 3 12:19:29 Referral None recorded. Procedures None recorded. Surgeries None recorded. Imaging None recorded. Medication Orders azithromyci n 250 mg tablet 2023 024 [facility] [address] [place], [address], 4 10:51:22 ibuprofen 600 mg tablet 2023 024 [facility] [address] [place], [address], 4 10:56:45 cyanocobala min (vit B-12) 1,000 mcg/mL injection solution 2023 024 [email or web address] Not available 4 12:14:57 cyanocobala min (vit B-12) 1,000 mcg/mL injection solution 2023 024 [email or web address] Not available 4 11:46:23 azithromyci n 250 mg tablet 2022 023 [email or web address] [facility] [address] [place], [address], 4 11:46:12 cyanocobala min (vit B-12) 1,000 mcg/mL injection solution 2022 023 [email or web address] Not available 4 11:46:23 Patient TargetsNo targets recorded. Patient InstructionsNo instructions recorded. Reason for Referral None Reported. Results Created Date Observation Date Name Description Value Unit Range Abnormal Flag Note LastModifiedBy Organization Detail LastModifiedTime 02/06/20 23 02/06/2023 VITAM IN B12 vitamin B12 461 pg/mL 200-11 00 normal Not Available [employer] [facility] [address] [place], [address], 02/06/2023 06:59:11 03/02/20 23 03/02/2023 rapid flu (A+B) Flu A negati ve Not Available [address], [place], [address], 03/02/2023 10:34:22 03/02/20 23 03/02/2023 rapid strep group A, throa t STREP A negati ve Not Available [address], [place], [address], 03/02/2023 10:34:12 06/08/19 24 06/08/2023 CT, brain , w/o contr ast No observ ation record ed. [place] [address], [place], [address], 06/11/2023 10:00:29 06/08/19 24 06/08/2023 XR, chest , 2 view No observ ation record ed. [email or web address], [place], [address], 06/11/2023 10:12:36 06/08/19 24 06/08/2023 US, doppl er, venou s No observ ation record ed. [email or web address], [place], [address], 06/11/2023 10:13:12 Result Notes None recorded. Problems Name Problem SNOMED Code Status Onset Date Resolution Date Notes Provider Name and Address Organization Details Recorded Time Seizure disorder 331578407 Active Not Available [facility] 3 18:32:11 Undifferen tiated attention deficit disorder 39124640 Active Not Available [facility] 3 18:32:11 Attention deficit hyperactiv ity disorder, predominan tly inattentiv e type 68034885 Active Not Available [facility] 3 18:32:11 Easy bruising 945153386 Active Not Available [facility] 3 18:32:11 Adult attention deficit hyperactiv ity disorder 264876660 Active Not Available [facility] 3 18:32:11 Fasting hypoglycem ia 2888241 Active Not Available [facility] 3 18:32:11 Epilepsy 72681190 Active Not Available [facility] 3 18:32:11 Malaise and fatigue 124266693 Active 2022 Not Available [facility] 3 18:32:11 Hyperchole sterolemia 19721224 Active 2022 Not Available [facility] 3 18:32:11 Cobalamin deficiency 380637958 Active 2022 Not Available [facility] 3 18:32:11 Conjunctiv itis 7639814 Active 2022 Not Available [facility] 3 18:32:11 Anxiety 82937823 Active 2022 Not Available [facility] 3 18:32:11 Herpes labialis 2582584 Active 2022 Not Available [facility] 3 18:32:11 Sore throat 919561215 Active 2022 Jess Rossi RN null, [employer] 3 10:34:30 Pharyngiti s 953411152 Active 2022 HANNAH Aguirre [address], [address], [place], [address] , [employer] 3 10:35:29 At increased risk of nutritiona l deficit 455469727 Active 2023 HANNAH Aguirre [address], [address], [place], [address] , [employer] 4 12:05:43 Pain of left elbow joint 8667574730869 9104 Active 2023 HANNAH Aguirre [address], [address], [place], [address] , [facility] 4 10:57:06 Vulvovagin itis 19828896 Active 2023 HANNAH Aguirre [address], [address], [place], [address] , [employer] 4 13:38:59 Problem Notes None recorded. Procedures Surgical History None recorded. Imaging Results Imaging Date Name Status LastModified by Organiz ation Details LastModified Time 06/08/2023 CT, brain, w/o contrast completed [address], [address], 06/11/2023 10:00:29 06/08/2023 XR, chest, 2 view [address], [address], 06/11/2023 10:12:36 06/08/2023 US, doppler, venous completed [address], [address], 06/11/2023 10:13:12 Procedure Notes None recorded. Medical Equipment None Reported. Allergies No known drug allergies Medications Name Sig Start Date Stop Date Status Note LastModified by Organization Details LastModified Time Proctosol HC 2.5 % rectal cream with applicator active Not Available Not Available N ot Available Adderall 20 mg tablet Take 1 tablet every day by oral route. 2024 active Not Available Not Available Not Avai lable azithromyc in 250 mg tablet TAKE 2 TABLETS (500 MG) BY ORAL ROUTE ONCE DAILY FOR 1 DAY THEN 1 TABLET (250 MG) BY ORAL ROUTE ONCE DAILY FOR 4 DAYS active Not Available Not Available No t Available Lidocaine Viscous 2 % mucosal solution SWISH AND SWALLOW 10 ML BY MOUTH EVERY 6 HOURS NEEDED FOR SORE THROAT. MAY MIX WITH 30 ML OF MYLANTA active Not Available Not Available No t Available fluconazol e 150 mg tablet TK 1 T PO TODAY THEN TK 1 T ON SUNDAY active Not Available Not Available No t Available valacyclov ir 1 gram tablet Take 2 tablets every 12 hours by oral route for 1 day. 2024 active Not Available Not Available Not Avai lable dextroamph etamine-am phetamine 10 mg tablet TAKE 1 TABLET BY MOUTH EVERY DAY 2024 active Not Available Not Available Not Avai lable terconazol e 0.8 % vaginal cream IVB FOR 3 CONS DAYS 04/28 completed Not Available Not Available Not Available methylergo novine 0.2 mg tablet 10/08 completed Not Available Not Available Not Available ciprofloxa tutu 250 mg tablet take 1 tablet by mouth twice a day active Not Available Not Available No t Available valacyclov ir 500 mg tablet 2022 active Not Available Not Available Not Avai lable dextroamph etamine-am phetamine 30 mg tablet TAKE 1 TABLET BY MOUTH EVERY DAY 02/27 completed Not Available Not Available Not Available Adderall XR 30 mg capsule,ex tended release Take 1 capsule every day by oral route. 02/28 completed Not Available Not Available Not Available ceftriaxon e 1 gram solution for injection inject 1 mg 10/08 completed Not Available Not Available Not Available lorazepam 2 mg tablet active Not Available Not Available Not Available hyoscyamin e 0.125 mg disintegra ting tablet take 1 tablet by mouth every 6 hours if needed BEFORE MEALS AND A... (REFER TO PRESCRIP TION NOTES). active Not Available Not Available No t Available cyanocobal dozier (vit B-12) 1,000 mcg/mL injection solution Inject 1 mL every month by subcutan eous route. 2023 active Pt did well Not Available Not Available Not Available oseltamivi r 75 mg capsule TK 1 C PO BID FOR 5 DAYS 02/23 completed Not Available Not Available Not Available misoprosto l 200 mcg tablet 10/08 completed Not Available Not Available Not Available ergocalcif lea (vitamin D2) 1,250 mcg (50,000 unit) capsule active Not Available Not Available Not Available lorazepam 1 mg tablet TAKE 1 TABLET BY MOUTH THREE TIMES DAILY NEEDED 2024 active Not Available Not Available Not Avai lable ibuprofen 600 mg tablet Take 1 tablet 3 times a day by oral route with meal(s) for 30 days. active Not Available Not Available No t Available neomycin 3.5 mg-polymyx in 10,000 unit-hydro terrence 10 mg/mL eye drop,susp INSTILL 2 DROP INTO AFFECTED EYE(S) BY OPHTHALM IC ROUTE EVERY 4 HOURS x 7 days 09/12 completed Not Available Not Available Not Available lamotrigin e 100 mg tablet TAKE 1 TABLET BY MOUTH THREE TIMES DAILY active Not Available Not Available No t Available Amphetamin e Salt Combo 20 mg tablet 08/[address] signed ===Amph etamine salt combo 20mg Not Available Not Available Not Available etonogestr el 0.12 mg-ethinyl estradiol 0.015 mg/24 hr vaginal ring INSERT 1 RING VAGINALL Y FOR 3 WEEKS THEN REMOVE FOR 1 WEEK 05/30 completed Not Available Not Available Not Available escitalopr am 10 mg tablet TAKE 1 TABLET BY MOUTH DAILY active Not Available Not Available No t Available Sprintec (28) 0.25 mg-0.035 mg tablet 10/09 completed Not Available Not Available Not Available Boostrix Tdap 2.5 Lf unit-8 mcg-5 Lf/0.5 mL intramuscu lar syringe active Not Available Not Available Not Available Lamictal XR 100 mg tablet,ext ended release active Not Available Not Available Not Available norethin-e thinyl estradiol- iron 0.8 mg-25 mcg(24)/75 mg(4) chew tablet CHEW AND SWALLOW 1 TABLET BY MOUTH EVERY DAY 10/09 completed Not Available Not Available Not Available lamotrigin e ER 300 mg tablet,ext ended release 24 hr Take 1 tablet(s ) every day by oral route. 06/09 completed Not Available Not Available Not Available Fluvirin 1267-1795 (PF) 45 mcg (15 mcg x 3)/0.5 mL IM syringe active Not Available Not Available N ot Available Blisovi Fe 04/14 (28) 1 mg-20 mcg (21)/75 mg (7) tablet TAKE 1 TABLET BY MOUTH EVERY DAY 01/09 completed Not Available Not Available Not Available Solosec [address] granules in packet 04/28 completed Not Available Not Available Not Available COVID-19 test specimen collection DIRECTED 12/22 completed Not Available Not Available Not Available Vitals Date Recorded Body height Body mass index (BMI) Body weight Body temperature Heart rate Oxygen saturation Oxygen saturation in Arterial blood by Pulse oximetry Systolic blood pressure Diastolic blood pressure Provider Name and Address Organization Details Last Updated DateTime 3 170.18 cm 21.6 kg/m2 35243.7 5 g 97.7 [degF] 100 /min 99 % 99 % 100 mm[Hg] 62 mm[Hg] Nehal monge CMA [facility] [employer] 3 10:32:36 Date Recorded Body height Provider Name an d Address Organization Details Last Updated DateTime 03/02/2023 170.18 cm Jess Rossi RN [facility] I L [employer] 03/02/2023 10:33:42 Date Recorded Body height Body mass index (BMI) Body weight Body temperature Heart rate Oxygen saturation Oxygen saturation in Arterial blood by Pulse oximetry Systolic blood pressure Diastolic blood pressure Provider Name and Address Organization Details Last Updated DateTime 4 170.18 cm 22.6 kg/m2 14563.3 g 97.6 [degF] 87 /min 99 % 99 % 116 mm[Hg] 72 mm[Hg] Brittney Blount MA [facility] [employer] 4 11:47:47 Date Recorded Body height Body mass index (BMI) Body weight Body temperature Heart rate Oxygen saturation Oxygen saturation in Arterial blood by Pulse oximetry Respiratory rate Systolic blood pressure Diastolic blood pressure Provider Name and Address Organization Details Last Updated DateTime 4 170.18 cm 21 kg/m2 69109.3 8 g 98.2 [degF] 87 /min 98 % 98 % 16 /min 106 mm[Hg] 70 mm[Hg] Nancy Mcdaniels RN [facility] [employer] [facility] 4 11:48:56 Date Recorded Body height Body mass index (BMI) Body weight Body temperature Heart rate Oxygen saturation Oxygen saturation in Arterial blood by Pulse oximetry Systolic blood pressure Diastolic blood pressure Provider Name and Address Organization Details Last Updated DateTime 4 170.18 cm 21.5 kg/m2 18390.1 5 g 98.6 [degF] 96 /min 100 % 100 % 112 mm[Hg] 78 mm[Hg] CELIA Godoy [facility] [employer] [facility] 4 10:21:49 Social History None recorded. Functional Status None recorded. Mental Status None recorded. Family History Nothing Reported. Medical History No medical history recorded. Gynecological HistoryNo gynecological history recorded. Obstetrics History GPAL:G 0 P 0 0 0 0 Immunizations Vaccine Type Date Status Note Provider Nam e and Address Organization Details Recorded Time Rho(D)-IG 06/04/2015 completed Not Available [facility] 02/14/2023 18:32:11 COVID-19, mRNA, LNP-S, PF, 30 mcg/0.3 mL dose 11/03/2020 completed Not Available [facility] 18:32:11 COVID-19, mRNA, LNP-S, PF, 30 mcg/0.3 mL dose 11/24/2020 completed Not Available [facility] 3 18:32:11 Tdap 05/19/2015 completed Not Available [facility] 02/14/2023 18:32:11 Tdap 12/18/2020 completed [facility] 02/14/2023 18:32:11 Tdap 02/06/2013 completed Not Available [facility] 02/14/2023 18:32:11 Influenza, split virus, trivalent, PF 05/19/2015 completed Not Available [facility] 2022 18:32:11 Influenza, MDCK, trivalent, PF 02/06/2013 completed Not Available [facility] 2022 18:32:11 Influenza, split virus, quadrivalent, PF 01/11/2022 completed Not Available [facility] 18:32:11 Influenza, split virus, quadrivalent, PF 02/25/2020 completed Not Available [facility] 18:32:11 Past Encounters Encounter ID Performer Location Encounter Start Date Encounter Closed Date Diagnosis/Indication Diagnosis SNOMED-CT Code Diagnosis ICD10 Code Diagnosis Note [id number] Vlad Pepe MD [facility] [place] [address] [facility] [address] , [place] [address] 12/22/2020 00:00:00 12/22/2020 21:03:52 [id number] Vlad Pepe MD [facility] [place] [address] [place] [address] 09/30/2021 00:00:00 09/30/2021 18:10:35 [id number] Vlad Pepe MD [facility] [place] [address] [facility] [place] [address] 01/11/2022 00:00:00 01/11/2022 15:11:52 [id number] Vlad Pepe MD [facility] [place] [address] [place] [address] 04/17/2022 00:00:00 04/17/2022 20:33:53 [id number] Vlad Pepe MD [facility] [place] [address] [facility] [place] [address] 05/30/2022 12:00:29 05/30/2022 12:36:22 Attention deficit hyperactivity disorder, predominantly inattentive type 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 F90.0 Malaise and fatigue 2717 78151 R53.83 Family his tory of diabetes mellitus type 2 440248621 Z83.3 Hypercholesterolemia 136 63205 E78.5 Cobalamin deficiency 190 704257 E53.8 [id number] Vlad Pepe MD [facility] [place] [address] [place] [address] 06/15/2022 10:24:58 06/15/2022 14:21:26 Cobalamin deficiency 734360388 E53.8 [id number] Vlad Pepe MD [facility] [place] [address] [place] [address] 10/05/2022 14:03:59 10/05/2022 14:09:42 Cobalamin deficiency 073387407 E53.8 [id number] Vlad Pepe MD [facility] [place] [address] [facility] [place] [address] 11/09/2022 10:25:59 11/09/2022 10:51:12 Attention deficit hyperactivity disorder, predominantly inattentive type 95563506 F90.0 Call for refills of dextroamph etamine Cobalamin deficiency 190 471485 E53.8 [id number] Vlad Pepe MD [facility] [place] [address] [place] [address] 03/02/2023 10:20:04 03/02/2023 13:20:15 Sore throat 923678530 J02.9 [id number] Vlad Pepe MD [facility] [place] [address] [place] [address] 03/30/2023 11:41:49 03/30/2023 13:11:39 Cobalamin deficiency 020378505 E53.8 Adult atte ntion deficit hyperactivity disorder 813979699 F90.9 Anxiety 78050058 F41.9 Attention deficit hyperactivity disorder, predominantly inattentive type 50782774 F90.0 Hypercholesterolemia 136 53260 E78.5 Seizure disorder 5546529 02 G40.053 [id number] Jose A Dc MD [facility] [place] [address] [place] [address] 09/13/2023 11:26:07 09/13/2023 12:21:42 Hypercholesterolemia 27558481 E78.5 Cobalamin deficiency 190 903473 E53.8 At [facility] risk of nutritional deficit 646835441 Z91.89 Anxiety 64716409 F41.9 Attention deficit hyperactivity disorder, predominantly inattentive type 93226362 F90.0 Seizure disorder 5833403 02 G40.988 [id number] Jose A Dc MD [facility] [place] [address] [facility] [place] [address] 01/10/2024 10:10:31 01/10/2024 11:11:23 Cobalamin deficiency 175163577 E53.8 Hypercholesterolemia 136 14979 E78.5 Sore throat 440601611 J0 2.9 Adult atte ntion deficit hyperactivity disorder 725220301 F90.9 Anxiety 19340415 F41.9 Epilepsy 87850554 G40.90 9 Pain of le ft elbow joint 0927990256 2220236 M25.522 Health Concerns Section Related Observation LastModified by Organization Detai ls LastModified Time None Recorded Concern Status LastModified by Organization Details LastModified Time None Recorded Advance Directives Directive None Recorded Payers Encounter Date Sequence Insurance Name Policy Number Policy Armstrong Covered Member ID Armstrong Member ID Guarantor Name 11/09/2022 1 [place] [id number] Avinash Rossi [id number] [address] Rossi 03/02/2023 1 [place] [id number] Avinash Rossi [id number] [address] Rossi 03/30/2023 1 [place] [id number] Avinash Rossi [id number] [place] Rossi 09/13/2023 1 [place] [id number] Avinash Rossi [id number] [place] Rossi 01/10/2024 1 [place] [id number] Avinash Rossi [id number] [address] Rossi Notes Date Note Type Note Provider Name and Address Organization Details Recorded Time 11/09/2022 text/html Here for med check. Doing ok. No problems. Doing good with this dose. No complaints. Wants a B12 shot. Vlad Pepe MD [address], [address], [place], [address], [employer] 11/09/2022 12:39:08 03/30/2023 text/html f/u HANNAH Aguirre [address], [address] [employer], [place], [address], [employer] 04/01/2023 13:28:28 09/13/2023 text/html no changes , wants blood work HANNAH Aguirre [address], [place], [address], [employer] 09/22/2023 22:11:56 01/10/2024 text/html two older kids have had strep a few times recently , 3 y/o not really . HANNAH Aguirre [address], [place], [address], [employer] 02/04/2024 17:10:12 OBGyn Episode No OBEpisode recorded.
[2024-08-17 17:13] VITALS: BP 104/63; PULSE 78; RESP 18; O2SAT 100
--- OUTSIDE RECORDS SUMMARY | 2024-08-17 17:45 | XMS_ITS | Clinical Summary ---
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
--- OUTSIDE RECORDS SUMMARY | 2024-08-17 17:45 | XMS_ITS | Clinical Summary ---
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
--- OUTSIDE RECORDS SUMMARY | 2024-08-17 17:45 | XMS_ITS | Referral Summary ---
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
--- NOTE | 2024-08-17 17:51 | ED_ITS ---
HPI - General Adult General Chief complaint: Extremity Injury, Lower Stated complaint: LEFT ANKLE INJURY Time Seen by Provider: 08/17/24 17:10 History of Present Illness HPI narrative: 39-year-old female presents emergency department for evaluation for a left ankle injury. Patient states he stepped off a ladder in stepped into a hole and rolled her ankle. Patient denies any other pain or injury. Patient denies striking head denies loss of consciousness. Related Data Home Medications ?Medication ?Instructions ?Recorded ?Confirmed ?Last Taken ?Type lamotrigine 100 mg tablet 300 mg PO DAILY 12/21/20 12/21/20 12/20/20 21:00 History (Lamictal) prenat.vits,franc,gvl-upsu-pxncg 1 tablet PO DAILY 12/21/20 12/21/20 12/20/20 21:00 History Allergies Allergy/AdvReac Type Severity Reaction Status Date / Time No Known Allergies Allergy Verified 08/17/24 17:24 Review of Systems Review of Systems: All systems reviewed & are unremarkable except as noted in HPI and below PMFSH Past Medical History Medical History Epilepsy Family History Family History Mother Epilepsy Social History Social History Smoking status: Never smoker Second hand tobacco smoke exposure: No Substance use: never Spiritual care concerns: No Exam Narrative: APPEARANCE: Well appearing, no pain, no distress, well-nourished. HEAD: normocephalic, atraumatic. EYES: PERRLA/EOMI, conjunctivae clear. NECK: Supple. No adenopathy, no masses. RESPIRATORY: Airway patent, respirations nonlabored. Clear to auscultation bilaterally, no rales, rhonchi, wheezing. CARDIOVASCULAR: Regular rate and rhythm without murmurs rubs or gallops. ABDOMINAL: Soft, nontender, nondistended, normal bowel sounds MUSCULOSKELETAL: Left lateral ankle tenderness to palpation with no deformity, pulses intact, no proximal tib-fib tenderness to palpation, no foot tenderness to palpation NEURO: Alert. Cranial nerves II through XII intact. Good gait. Good coordination SKIN: Warm, dry. Normal Color Course Vital Signs Vital signs: Vital Signs Pulse Rate 78 08/17/24 17:13 Respiratory Rate 18 08/17/24 17:13 Blood Pressure 104/63 08/17/24 17:13 Pulse Oximetry 100 08/17/24 17:13 Oxygen Delivery Room Air 08/17/24 17:13 Pulse Rate 78 08/17/24 17:13 Respiratory Rate 18 08/17/24 17:13 Blood Pressure 104/63 08/17/24 17:13 Pulse Oximetry 100 08/17/24 17:13 Oxygen Delivery Room Air 08/17/24 17:13 Medical Decision Making MDM Narrative Medical decision making narrative: 39-year-old female presented to the emergency department for evaluation for left ankle pain. X-ray was negative for acute fracture dislocation. Differential Diagnosis Differential Diagnosis: Ankle sprain, ankle fracture, proximal tib-fib fracture, subdural hematoma, malhotra barachnoid hemorrhage, cervical spine fracture Vital Signs Vital Signs: Vital Signs Pulse Rate 78 08/17/24 17:13 Respiratory Rate 18 08/17/24 17:13 Blood Pressure 104/63 08/17/24 17:13 Pulse Oximetry 100 08/17/24 17:13 Oxygen Delivery Room Air 08/17/24 17:13 Pulse Rate 78 08/17/24 17:13 Respiratory Rate 18 08/17/24 17:13 Blood Pressure 104/63 08/17/24 17:13 Pulse Oximetry 100 08/17/24 17:13 Oxygen Delivery Room Air 08/17/24 17:13 Imaging Data Radiologist's impression: Impressions Ankle X-Ray 08/17/24 17:35 IMPRESSION: No acute osseous abnormality left ankle. Discharge Plan Discharge Clinical Impression: Ankle sprain and strain Patient Disposition: Home Condition: Stable Instructions: Antibiotic Form, Ankle Sprain (DC), Crutch Instructions (ED) Additional Instructions: Wan wrap for increased comfort and support. Crutches for nonweightbearing for the next 3-5 days. Tylenol and ibuprofen for pain control. Ice and elevate the affected leg. Have close follow-up with your primary care physician. Additionally you may need follow-up with Orthopedics or an MRI if your symptoms do not improve. Patient Language: [place] Prescriptions: New cyclobenzaprine 10 mg tablet 10 mg PO BID PRN (Reason: muscle spasm) Qty: 14 0RF No Action lamotrigine [Lamictal] 100 mg Tablet 300 mg PO DAILY prenat.vits,franc,xfo-lmqj-ntyro Tablet 1 tablet PO DAILY Dermoplast (with menthol) 20-0.5 % Aerosol 1 spray topical PRN PRN (Reason: Perineal Discomfort) 0RF KPN Tablet 1 tab PO DAILY 0RF Preparation H (Marcus Bruce) 50 % Pads, Medicated 1 pad topical PRN PRN (Reason: Perineal Discomfort) 0RF Follow-up/Referrals: Bari,HANNAH Jaiver [Primary Care Provider] -
[2024-08-17] MEDS: IBUPROFEN 400 MG TABLET 800 MG PO (18:06)
== END 2024-08-17 18:08 | disposition home or self-care (01) ==
PROVIDERS: Emergency Provider Emergency Medicine; PCP Physician Assistant
DX: S93.402A Sprain of unspecified ligament of left ankle, initial encounter (principal); S96.912A Strain of unspecified muscle and tendon at ankle and foot level, left foot, initial encounter; G40.909 Epilepsy, unspecified, not intractable, without status epilepticus; X50.9XXA Other and unspecified overexertion or strenuous movements or postures, initial encounter
CPT/HCPCS: 73610; 99283; A9270